=== PATIENT | male | born 1990 | race Two or more races ===

== ENCOUNTER 2022-09-01 17:57 | Inpatient (IN) | payer OTHER ==
[~2022-09-01] VITALS: Ht 177.8 cm; Wt 84.1 kg
[2022-09-01 18:24] LABS: BASOPHILS % (AUTO) 0.8 % (0.0-2.0); EOSINOPHILS % (AUTO) 5.3 % (1.0-6.0); HEMATOCRIT 48.6 % (41-53); HEMOGLOBIN 16.7 g/dL (13.5-17.5); LYMPHOCYTES # (AUTO) 3.7 K/uL (1.0-4.8); LYMPHOCYTES % (AUTO) 43.6 % (22.0-44.0); MEAN CORPUSCULAR HEMOGLOBIN 30.3 pg (26.0-34.0); MEAN CORPUSCULAR HGB CONC 34.3 G/dL (31.0-37.0); MEAN CORPUSCULAR VOLUME 88 fL (80-100); MONOCYTES # (AUTO) 0.7 K/uL (0.1-1.0); MONOCYTES % (AUTO) 8.2 % (2.0-9.0); NEUTROPHILS # (AUTO) 3.6 K/uL (1.8-7.7); NEUTROPHILS % (AUTO) 42.1 % (40.0-70.0); PLATELET COUNT (AUTO) 302 K/uL (150-450); RED BLOOD CELL COUNT(AUTO) 5.49 MIL/uL (4.50-5.90); RED CELL DISTRIBUTION WIDTH 13.6 % (11.5-14.5)
[2022-09-01 18:43] LABS: ALANINE AMINOTRANSFERASE 37 U/L (12-78); ALBUMIN 4.2 g/dL (3.4-5.0); ALKALINE PHOSPHATASE 71 U/L (46-116); ANION GAP 16 mmol/L (8-16); ASPARTATE AMINOTRANSFERASE 28 U/L (15-37); BILIRUBIN,TOTAL 0.3 mg/dL (0.1-1.0); CALCIUM, TOTAL 8.9 mg/dL (8.8-10.5); CARBON DIOXIDE 24 mmol/L (22-29); CHLORIDE 101 mmol/L (98-107); CREATININE 0.71 mg/dL (0.60-1.30); GLOMERULAR FILTR. RATE CALC > 60 mL/min (>60); GLUCOSE,RANDOM 109 mg/dL (70-110); POTASSIUM 3.7 mmol/L (3.5-5.1); SODIUM SERUM 141 mmol/L (136-145); TOTAL PROTEIN, SERUM 8.1 g/dL (6.4-8.2)
[2022-09-01 18:44] LABS: SALICYLATE < 2.0 mg/dL (2.8-20.0)
[2022-09-01] MEDS ORDERED: WATER IV ONE ×3 (19:30→20:55)
[2022-09-01] MEDS ORDERED: SODIUM CHLORIDE 0.9% 1,000 ML IV ONE (19:30)
[2022-09-01] MEDS ORDERED: ONDANSETRON HCL 4 MG/2 ML VIAL IVP ONE (19:30)
[2022-09-01] MEDS ORDERED: ACETYLCYSTEINE IV ONE ×3 (19:30→20:55)
[2022-09-01] MEDS ORDERED: DEXTROSE 5% IV ONE ×3 (19:30→20:55)
[2022-09-01] MEDS ORDERED: MORPHINE SULFATE 2 MG/ML SYRINGE IVP PRN (22:45)
[2022-09-01] MEDS ORDERED: ONDANSETRON HCL 4 MG/2 ML VIAL IVP PRN (22:45)
[2022-09-01] MEDS ORDERED: ZOLPIDEM TARTRATE 5 MG TABLET PO PRN (22:45)
[2022-09-01] MEDS ORDERED: BISACODYL 10 MG RECTAL RECTAL SUPPOSITORY PR PRN (22:45)
[2022-09-01] MEDS ORDERED: MAGNESIUM HYDROXIDE SUSPENSION 30 ML UDCUP PO PRN (22:45)
[2022-09-01] MEDS ORDERED: MAGNESIUM SULFATE 2 GM, MVI, ADULT NO.1 WITH VIT K 10 ML, THIAMINE 100 MG, FOLIC ACID 1... IV ONE ×5 (23:30)
[2022-09-01 23:38] LABS: ACETAMINOPHEN 68 mcg/mL (10-30)
[2022-09-02] VITALS (7 sets, daily range): BP systolic 137–151; BP diastolic 84–93
[2022-09-02] MEDS: HEPARIN SODIUM,PORCINE 5,000 UNITS/ML VIAL SQ SCH ×4 (00:24→23:03)
[2022-09-02] MEDS: PANTOPRAZOLE SODIUM 40 MG DR TABLET PO SCH (09:00)
[2022-09-02] MEDS: DOCUSATE SODIUM 100 MG CAPSULE PO SCH ×2 (09:00→20:20)
[2022-09-02] MEDS ORDERED: GuaiFENesin/D-METHORPHAN [SUGAR-FREE] 200-20MG/10 ML SYRUP UDCUP PO PRN (16:00)
[2022-09-02] MEDS ORDERED: LORazepam 2 MG TABLET PO PRN (16:00)
[2022-09-02] MEDS ORDERED: HydrOXYzine PAMOATE 50 MG CAPSULE PO PRN (16:00)
[2022-09-02] MEDS: GABAPENTIN 100 MG CAPSULE PO SCH ×2 (16:00→20:21)
[2022-09-02] MEDS ORDERED: LOPERAMIDE HCL 2 MG CAPSULE PO PRN (16:00)
[2022-09-02] MEDS ORDERED: CYANOCOBALAMIN 1,000 MCG/ML VIAL IM ONE (16:00)
[2022-09-02] MEDS: MELATONIN 5 MG TABLET PO SCH (20:20)
[2022-09-02] MEDS: THIAMINE 100 MG TABLET PO SCH (20:21)
[2022-09-03 00:04] VITALS: BP 140/85
[2022-09-03 04:50] VITALS: BP 125/82
[2022-09-03] MEDS ORDERED: LORazepam 2 MG TABLET PO PRN (07:00)
[2022-09-03 07:01] LABS: CHOL/HDL RATIO 2.9 (4.2-7.3); FREE T4 (FREE THYROXINE) 1.02 ng/dL (0.76-1.46); THYROID STIMULATING HORMONE 0.84 uIU/mL (0.36-3.74)
[2022-09-03 07:21] VITALS: BP 128/84
[2022-09-03] MEDS: HEPARIN SODIUM,PORCINE 5,000 UNITS/ML VIAL SQ SCH ×3 (08:00→22:52)
[2022-09-03] MEDS: LORazepam 2 MG TABLET PO SCH ×4 (09:00→20:32)
[2022-09-03] MEDS: FOLIC ACID 1 MG TABLET PO SCH (09:00)
[2022-09-03] MEDS: PARoxetine HCL 10 MG TABLET PO SCH (09:00)
[2022-09-03] MEDS: NALTREXONE HCL 50 MG TABLET PO SCH (09:00)
[2022-09-03] MEDS: PANTOPRAZOLE SODIUM 40 MG DR TABLET PO SCH (09:00)
[2022-09-03] MEDS: THIAMINE 100 MG TABLET PO SCH ×2 (09:00→20:33)
[2022-09-03] MEDS: GABAPENTIN 100 MG CAPSULE PO SCH ×4 (09:00→20:33)
[2022-09-03] MEDS: DOCUSATE SODIUM 100 MG CAPSULE PO SCH ×2 (09:00→20:32)
[2022-09-03] MEDS: MULTIVITAMINS WITH MINERALS, THERAPEUTIC TABLET PO SCH (09:00)
[2022-09-03 14:36] VITALS: BP 126/78
[2022-09-03 17:34] VITALS: BP 126/78
[2022-09-03 19:29] VITALS: BP 131/91
[2022-09-03] MEDS: MELATONIN 5 MG TABLET PO SCH (20:32)
[2022-09-04 05:55] VITALS: BP 130/83
[2022-09-04 08:00] VITALS: BP 139/77
[2022-09-04] MEDS: HEPARIN SODIUM,PORCINE 5,000 UNITS/ML VIAL SQ SCH ×2 (08:00→16:00)
[2022-09-04] MEDS: DOCUSATE SODIUM 100 MG CAPSULE PO SCH (08:01)
[2022-09-04] MEDS: PANTOPRAZOLE SODIUM 40 MG DR TABLET PO SCH (08:01)
[2022-09-04] MEDS: FOLIC ACID 1 MG TABLET PO SCH (08:06)
[2022-09-04] MEDS: LORazepam 2 MG TABLET PO SCH ×3 (08:06→16:00)
[2022-09-04] MEDS: NALTREXONE HCL 50 MG TABLET PO SCH (08:07)
[2022-09-04] MEDS: THIAMINE 100 MG TABLET PO SCH (08:07)
[2022-09-04] MEDS: PARoxetine HCL 10 MG TABLET PO SCH (08:07)
[2022-09-04] MEDS: MULTIVITAMINS WITH MINERALS, THERAPEUTIC TABLET PO SCH (08:07)
[2022-09-04] MEDS: GABAPENTIN 100 MG CAPSULE PO SCH ×3 (08:07→16:00)
[2022-09-04] MEDS ORDERED: PARO10TA71 PO (13:41)
[2022-09-04] MEDS ORDERED: GABA-1216 PO (13:41)
[2022-09-04] MEDS ORDERED: NALT50TA PO (13:41)
[2022-09-04] MEDS ORDERED: MELA5TAB40 PO (13:41)
[2022-09-04 16:13] VITALS: BP 128/78
[2022-09-05] MEDS ORDERED: LORazepam 1 MG TABLET PO PRN (07:00)
[2022-09-05] MEDS ORDERED: LORazepam 1 MG TABLET PO SCH (09:00)
[2022-09-06] MEDS ORDERED: LORazepam 1 MG TABLET PO PRN (07:00)
== END 2022-09-04 18:10 | disposition home or self-care (01) | DRG 918 ==
LOC: EMS 17:59 → 6S 09-02 06:35 → 6N 09-03 16:00
PROVIDERS: ADMIT Internal Medicine; ATTEND Internal Medicine
DX: T39.1X2A Poisoning by 4-Aminophenol derivatives, intentional self-harm, initial encounter (principal); R45.851 Suicidal ideations; F33.2 Major depressive disorder, recurrent severe without psychotic features; Y90.8 Blood alcohol level of 240 mg/100 ml or more; F10.129 Alcohol abuse with intoxication, unspecified; Z91.148 Patient's other noncompliance with medication regimen for other reason; Y92.89 Other specified places as the place of occurrence of the external cause; Z79.899 Other long term (current) drug therapy
CPT/HCPCS: 71045; 80053; 80061; 83036; 84439; 84443; 85025; 93005; 99285; G0480; G0481; J0132; J1644; J2405; J3411; J3420; J3475; J3490; J7030; J7060; 36415-L1; 36415-TC